=== PATIENT | female | born 1950 | race Caucasian/White ===

== ENCOUNTER 2016-07-02 14:21 | Inpatient (IN) | payer OTHER ==
[~2016-07-02] VITALS: Ht 175.3 cm; Wt 68.0 kg
[2016-07-02 16:04] VITALS: BP 104/72
[2016-07-02 16:05] VITALS: BP 104/72
--- NOTE | 2016-07-02 16:25 | HP ---
ADMIT DATE: 07/02/2016 CHIEF COMPLAINT: Abdominal pain, weight loss, abnormal CT scan. HISTORY OF PRESENT ILLNESS: A 65-year-old white female, seen on 06/24 in the office with some ongoing abdominal pain of uncertain duration. About a month or so prior to admission, she developed some diffuse abdominal pain on the right side, often worse after eating, associated with gas and constipation. There has been no overt melena, hematochezia or vomiting and she has had some unknown amount of weight loss. CT scan was ordered and showed innumerable lesions in the liver and also diffuse adenopathy in the intra-abdominal area and left-sided hydronephrosis with a distal ureteral stone. She is admitted for further evaluation of the probable oncology origin of this process. PAST MEDICAL HISTORY: History of coronary artery disease and in 2005, she had 2 stents placed none since then. MEDICATIONS: She takes carvedilol, Crestor and aspirin for this along with Effexor and Wellbutrin. ALLERGIES: Listed to DEMEROL AND TETRACYCLINE. PAST SURGICAL HISTORY: Surgically, she has had a total abdominal hysterectomy for benign disease, tonsillectomy, appendectomy and benign breast biopsies as well. SOCIAL HISTORY: She is ongoing smoker, about a half pack a day, started at age 15-18. She is single, employed, light drinker. FAMILY HISTORY: Father living of heart disease. Mother living with diabetes. No history of cancer in the family. REVIEW OF SYSTEMS: She has had some nonspecific weight loss and general malaise, but no other specific complaints. She has never had a colonoscopy or a CT scan of her chest for any kind of cancer surveillance aside from mammograms. OBJECTIVE: ENT: All within normal limits. NECK: No nodes, masses, or thyroid enlargement. LUNGS: Decreased breath sounds in both lung bases. CARDIOVASCULAR: Regular rate, mild tachycardia. No murmur. ABDOMEN: Diffusely tender, liver feels enlarged, no discrete nodules are felt. She is tender in the lower quadrants as well. No ascites is noted. EXTREMITIES: Reasonably good pedal and radial pulses, 1+ clubbing. No joint or skin lesions, or edema. NEUROLOGIC: Physiologic. GENITOURINARY AND RECTAL: Declined. LABORATORY DATA: CT scan showed innumerable nodular lesions in the liver as well as diffuse intraabdominal lymphadenopathy with left-sided hydronephrosis and a distal ureteral stone. No discrete primary mass was seen. There is a right-sided pleural effusion noted as well. ASSESSMENT: 1. Diffuse abdominal pain with almost certainly primary carcinoma diagnosis with abnormal lesions in the liver and intra-abdominal nodes. Primary could be lung, colon, or even lymphoma. 2. History of coronary artery disease, stable. 3. Smoker. 4. Pleural effusion, likely sympathetic to liver disease. PLAN: CT scan of the abdomen, pelvis, and chest with oral contrast. Her creatinine was 1.5. She will need biopsy for tissue diagnosis of the liver or intraabdominal nodes unless there is a mass in the lung, warranting evaluation of that. ABIOLA COONEY MD DR: DILAN/cary JOB#: [id number] / [id number]
[2016-07-02] MEDS ORDERED: CRESTOR20 MG PO (18:06)
[2016-07-02] MEDS ORDERED: CARV6.252 PO (18:06)
[2016-07-02] MEDS ORDERED: BUPR150T11 PO (18:06)
[2016-07-02] MEDS ORDERED: LEVO50TA5 PO (18:06)
[2016-07-02] MEDS ORDERED: TEMA15CA PO (18:06)
[2016-07-02] MEDS ORDERED: ASPI-482 PO (18:06)
[2016-07-02] MEDS ORDERED: VENL150C6 PO (18:06)
[2016-07-02] MEDS ORDERED: HYDROCODONE/APAP 5/325MG TABLET. PO PRN (18:45)
[2016-07-02 19:00] VITALS: BP 118/67
[2016-07-02] MEDS ORDERED: TEMAZEPAM 15 MG CAPSULE PO PRN (19:45)
[2016-07-02 19:54] LABS: BASO # 0.1 x10^3/uL (0.0-0.2); BASO % 1 % (0-3); EOS % 3 % (0-3); HEMATOCRIT 39.3 % (36.0-47.0); LYMPH # 2.3 x10^3/uL (1.0-4.8); LYMPH % 26 % (24-48); MEAN CORPUSCULAR HEMOGLOBIN 29 pg (25-35); MEAN CORPUSCULAR HGB CONC 33 g/dL (31-37); MEAN CORPUSCULAR VOLUME 89 fL (79-100); MONO % 7 % (0-9); NEUT % 63 % (31-73); PLATELET COUNT 344 x10^3/uL (140-400); RED BLOOD COUNT 4.42 x10^6/uL (3.50-5.40); RED CELL DISTRIBUTION WIDTH 12.8 % (11.5-14.5)
[2016-07-02 20:03] LABS: INR 1.1 (0.8-1.1); PROTHROMBIN TIME PATIENT 13.5 SEC (11.7-14.0)
[2016-07-02 20:21] LABS: ALBUMIN 3.2 g/dL (3.4-5.0); ALBUMIN/GLOBULIN RATIO 0.8 (1.0-1.7); CALCIUM 9.4 mg/dL (8.5-10.1); CREATININE 1.4 mg/dL (0.6-1.0); TOTAL BILIRUBIN 0.3 mg/dL (0.2-1.0); TOTAL PROTEIN 7.4 g/dL (6.4-8.2)
[2016-07-02] MEDS: IV DEXTROSE 5% - 0.9 % NACL 1,000 ML IV SCH (20:53)
[2016-07-02] MEDS: CARVEDILOL 6.25 MG TABLET PO SCH (20:53)
[2016-07-02] MEDS: VENLAFAXINE 50 MG TABLET. PO SCH (20:54)
[2016-07-02] MEDS ORDERED: ASPIRIN ENTERIC COATED 81 MG TABLET.DR. PO SCH (21:00)
[2016-07-02] MEDS ORDERED: ATORVASTATIN CALCIUM 40 MG TABLET. PO SCH (21:00)
[2016-07-02 23:00] VITALS: BP 102/55
[2016-07-03] MEDS: IV DEXTROSE 5% - 0.9 % NACL 1,000 ML IV SCH ×2 (02:45→05:08)
[2016-07-03 03:00] VITALS: BP 95/41
[2016-07-03] MEDS ORDERED: CONTRAST GIVEN MC PRN (06:45)
[2016-07-03] MEDS ORDERED: IOHEXOL 240 MG/ML 50ML VIAL. IV ONE (06:45)
[2016-07-03 07:00] VITALS: BP 105/59
[2016-07-03] MEDS ORDERED: LEVOTHYROXINE 50 MCG TABLET PO SCH (07:30)
[2016-07-03] MEDS: VENLAFAXINE 50 MG TABLET. PO SCH (07:57)
[2016-07-03] MEDS: CARVEDILOL 6.25 MG TABLET PO SCH (07:58)
[2016-07-03] MEDS ORDERED: buPROPion SR 150 MG TABLET.SA PO SCH (09:00)
--- NOTE | 2016-07-03 09:09 | PDOC ---
Provider Note Provider Note labs/inr ok, ct in process- feel lung/colon/lymphoma most likely primaries- may be able to bx later today based on scans ABIOLA COONEY MD Jul 03, 2016 09:09
[2016-07-03] MEDS ORDERED: TEMAZEPAM 15 MG CAPSULE PO PRN (09:15)
--- NOTE | 2016-07-03 09:49 | PDOC2 ---
GI CONSULT Reason For Consult: Liver masses, constipation, needs colonoscopy HPI: HPI: 65 y/o female, a pt of Dr. Bailey's, case previously d/w Dr. Stern re: need for colonoscopy. H/o 20 pound unintentional weight loss, limited diet (mostly liquids) due to early satiety, right-sided abd pain, some abd cramping ("like menstrual cramps"), bloating, nausea, and constipation. Symptoms present for a few months. Feels better after taking laxatives and having stools about every other day. Also has some heartburn which is not really improved w/ Jessica Han. No previous EGD or colonoscopy. Had a CT at another facility which showed liver lesions and abdominal adenopathy, now admitted for further evaluation. CT chest/A/P is pending this morning and liver biopsy is possible later today. PMH: PMH: CAD s/p two stents, HLD, hypothyroidism, anxiety/depression, total hysterectomy , tonsillectomy, appendectomy, benign breast biopsies FH: Family History: Cancer (?perhaps an aunt had cancer (unknown kind)), CAD, DM Social History: Smoke: <1 pack per day ALCOHOL: occassional Drugs: None ROS: GEN: Denies fevers, chills, sweats HEENT: Denies blurred vision, sore throat CV: Denies chest pain RESP: Denies shortness of air, cough GI: Per HPI : Denies hematuria, dysuria ENDO: +weight loss NEURO: Denies confusion, dizziness MSK: Denies weakness, joint pain/swelling SKIN: Denies jaundice, pruritus VItals: Vitals: Vital Signs Date Time Temp Pulse Resp B/P Pulse Ox O2 Delivery O2 Flow Rate FiO2 07/03/16 07:58 70 105/59 07/03/16 07:00 98.5 18 93 Room Air 98.5 Labs: Labs: Laboratory Tests Test 07/02/16 19:40 White Blood Count 9.0x10^3/uL (4.0-11.0) Red Blood Count 4.42x10^6/uL (3.50-5.40) Hemoglobin 13.0g/dL (12.0-15.5) Hematocrit 39.3% (36.0-47.0) Mean Corpuscular Volume 89fL (79-100) Mean Corpuscular Hemoglobin 29pg (25-35) Mean Corpuscular Hemoglobin Concent 33g/dL (31-37) Red Cell Distribution Width 12.8% (11.5-14.5) Platelet Count 344x10^3/uL (140-400) Neutrophils (%) (Auto) 63% (31-73) Lymphocytes (%) (Auto) 26% (24-48) Monocytes (%) (Auto) 7% (0-9) Eosinophils (%) (Auto) 3% (0-3) Basophils (%) (Auto) 1% (0-3) Neutrophils # (Auto) 5.7x10^3uL (1.8-7.7) Lymphocytes # (Auto) 2.3x10^3/uL (1.0-4.8) Monocytes # (Auto) 0.6x10^3/uL (0.0-1.1) Eosinophils # (Auto) 0.3x10^3/uL (0.0-0.7) Basophils # (Auto) 0.1x10^3/uL (0.0-0.2) Prothrombin Time 13.5SEC (11.7-14.0) Prothromb Time International Ratio 1.1 (0.8-1.1) Sodium Level 137mmol/L (136-145) Potassium Level 4.0mmol/L (3.5-5.1) Chloride Level 99mmol/L (98-107) Carbon Dioxide Level 30mmol/L (21-32) Anion Gap 8 (6-14) Blood Urea Nitrogen 11mg/dL (7-20) Creatinine 1.4mg/dL (0.6-1.0) Estimated GFR (Cockcroft-Gault) 38.0 BUN/Creatinine Ratio 8 (6-20) Glucose Level 95mg/dL (70-99) Calcium Level 9.4mg/dL (8.5-10.1) Total Bilirubin 0.3mg/dL (0.2-1.0) Aspartate Amino Transf (AST/SGOT) 26U/L (15-37) Alanine Aminotransferase (ALT/SGPT) 22U/L (14-59) Alkaline Phosphatase 109U/L (46-116) Total Protein 7.4g/dL (6.4-8.2) Albumin 3.2g/dL (3.4-5.0) Albumin/Globulin Ratio 0.8 (1.0-1.7) Allergies: Coded Allergies: tetracycline (Verified Allergy, Severe, Rash, 07/02/16) meperidine (Verified Allergy, Intermediate, Nausea and Vomiting, 07/02/16) Medications: Current Medications Medications (Trade) Dose Ordered Sig/Gurvinder Route PRN Reason Start Time Stop Time Status Last Admin Dose Admin Dextrose/Sodium Chloride (Iv D5% - NS) 1,000 ml @ 125 mls/hr Q8H IV 07/02/16 18:45 07/03/16 05:08 Aspirin (Ecotrin) 81 mg HS PO 07/02/16 21:00 07/03/16 07:47 DC 07/02/16 20:53 Bupropion HCl (Wellbutrin Sr) 150 mg DAILY PO 07/03/16 09:00 07/03/16 07:58 Carvedilol (Coreg) 6.25 mg BIDWMEALS PO 07/02/16 20:00 07/03/16 07:58 Levothyroxine Sodium (Synthroid) 50 mcg DAILYAC PO 07/03/16 07:30 07/03/16 07:58 Temazepam (Restoril) 15 mg PRN QHS PRN PO INSOMNIA 07/02/16 19:45 07/03/16 09:08 DC 07/02/16 20:53 Atorvastatin Calcium (Lipitor) 80 mg QHS PO 07/02/16 21:00 07/03/16 09:08 DC 07/02/16 20:53 Venlafaxine HCl (Effexor) 50 mg TID PO 07/02/16 21:00 07/03/16 09:08 DC 07/02/16 20:54 Iohexol (Omnipaque 240 Mg/ml) 50 ml 1X ONCE IV 07/03/16 06:45 07/03/16 06:46 DC 07/03/16 09:14 Imaging: Imaging: CT chest/abd/pelvis 07/03/16 PENDING PE: GEN: NAD, pleasant/cooperative HEENT: Atraumatic, PERRL LUNGS: CTAB anteriorly HEART: RRR ABD: BS+, some distention, RUQ tenderness EXTREMITY: No edema SKIN: No rashes, no jaundice NEURO/PSYCH: A & O 3 A/P: A/P: Liver lesions, abd adenopathy -on CT at another facility, CT chest/A/P pending here Weight loss, early satiety, nausea, right-sided abd pain/cramping, bloating, constipation Heartburn -frequent, not improved w/ Azra-Guille, no previous EGD CRC screen -no previous colonoscopy -- D/w Dr. Stern - f/u planned next week. Await imaging, possible biopsy. Will discuss timing of EGD/colonoscopy (?outpt next week) w/ Dr. Patel. Will add Miralax, PPI. STERLING ALCARAZ Jul 03, 2016 09:49
--- NOTE | 2016-07-03 09:50 | RAD ---
Indication: Liver nodules. Axial imaging through the chest, abdomen and pelvis was performed without intravenous contrast. No prior studies are available for comparison. CT chest: No axillary lymphadenopathy is detected. Hilar and mediastinal evaluation is limited without intravenous contrast. There are coronary arterial calcifications present. No pericardial effusion is identified. There are some enlarged lymph nodes in the anterior mediastinum just above the diaphragm. Largest lymph node measures 1.7 cm in diameter. There is a moderate right pleural effusion layering dependently to a thickness of approximately 6 cm. No left-sided effusion is identified. Parenchymal evaluation does show some compressive atelectasis in the right lower lobe. No parenchymal mass is detected. The left lung is clear. Impression: 1. Moderate right pleural effusion and right basilar compressive atelectasis. There are enlarged lymph nodes in the anterior mediastinum, indeterminate. No other significant abnormality is seen. CT abdomen and pelvis: There is a large ill-defined low-density mass involving the right lobe of the liver measuring approximately 6 cm transverse diameter. Abnormal nodular soft tissue thickening is identified in the perihepatic region, suggestive of serosal implants on the surface of the liver. No biliary ductal dilatation is seen. The gallbladder is not well-visualized and may be surgically absent. The pancreas and spleen are unremarkable. No adrenal mass is detected. There is left hydroureteronephrosis. The dilated left ureter is traced into the pelvis but exact etiology of the hydronephrosis is not determined. No definite calculi are identified. The aorta is nonaneurysmal. The small and large bowel loops are normal caliber. Abnormal soft tissue masses at the central abdomen mesentery is noted, largest 2.3 cm in diameter, image 57. Second density image 62 is identified measuring 2.2 cm. No definite iliac or inguinal lymphadenopathy is identified. There is sigmoid diverticular disease. There is some free fluid in the pelvis but no well-formed fluid collection is identified. The bladder is decompressed. Impression: 1. Findings suggestive of a large liver mass. There are also numerous perihepatic nodular densities suggestive of serosal implants, perhaps on the basis of peritoneal carcinomatosis. Additional enlarged mesenteric sheryl masses are also present. There is moderate free fluid in the pelvis. Sigmoid diverticulosis is noted. PQRS Compliance Statement: One or more of the following individualized dose reduction techniques were utilized for this examination: 1. Automated exposure control 2. Adjustment of the mA and/or kV according to patient size 3. Use of iterative reconstruction technique
[2016-07-03] MEDS ORDERED: VENLAFAXINE XR 37.5 MG CAP.ER.24H. PO SCH (10:00)
--- NOTE | 2016-07-03 10:00 | PDOC ---
Provider Note Provider Note Onc consult dictated- [id number] Liver lesions, abdominal adenopathy concerning for stage IV cancer, etiology unclear Tob abuse Constipation RUQ abd pain Plan: - CT C/A/P - CEA - Liver bx - GI consult, needs colonoscopy as in or outpt in very near future to r/u near obstruction which could require surgery - Pt states she is not interested in systemic chemo but will f/u with me in clinic next week on pending results. D/W Dr. Bailey and SHARAN. LISHA TATUM DO Jul 03, 2016 10:00
[2016-07-03] MEDS ORDERED: POLYETHYLENE GLYCOL 3350 17 GM PACKET. PO SCH (10:30)
[2016-07-03] MEDS ORDERED: PANTOPRAZOLE 40 MG TABLET. PO SCH (10:30)
[2016-07-03 11:00] VITALS: BP 117/60
--- NOTE | 2016-07-03 20:21 | DS ---
DATE OF DISCHARGE: 07/03/2016 HOSPITAL SUMMARY: A 65-year-old white female with diffuse abdominal pain and weight loss, was found by outpatient CT to have large masses in her liver as well as enumerable enlarged lymph nodes in the intraabdominal area and a right pleural effusion. She was admitted for pain control, diagnostic evaluation and biopsy to try make a diagnosis of cancer of unknown primary. She had a CBC, chemistry profile, all of which was normal as was her INR. CEA is pending. CT scan of the chest showed some intrapulmonary lymph nodes and right pleural effusion with no masses. The CT scan of the abdomen showed a large 6 cm abdominal mass in the liver as well as multiple nodes on the outside of the liver and within the abdomen as well with no other dominant mass. Liver biopsy was planned and was going to be done, but was delayed by Emergency and Interventional Radiology and the patient was uncomfortable waiting, wanted to go home, and have it followed as an outpatient despite our recommendations against that. FINAL DIAGNOSES: 1. Liver mass, suspect neoplasm of unknown primary. 2. Intraabdominal lymphadenopathy, suspect carcinoma of unknown primary. 3. Right pleural effusion, likely secondary to liver mass. OPERATIONS, PROCEDURES, COMPLICATIONS: None. CONSULTATIONS: Dr. Kylah Stern. DISPOSITION: She will see Interventional Radiology next week for liver biopsy as scheduled prior to her departure. Home meds remain the same, but she will remain off aspirin because of the bleeding risk greater than benefit. Prognosis is extremely guarded given the unknown nature of her carcinoma diagnosis. ABIOLA COONEY MD DR: DILAN/cary JOB#: [id number] / [id number]
--- NOTE | 2016-07-04 00:50 | CONS ---
DATE OF CONSULTATION: REFERRING PROVIDER: Dr. Garrett Bailey. REASON FOR CONSULTATION: Liver lesions. HISTORY OF PRESENT ILLNESS: The patient is a 65-year-old female who presented to Dr. Bailey for outpatient followup when she was having a 1 month history of right upper quadrant abdominal pain and a 20-pound weight loss. She has had early satiety, poor appetite, difficulty passing stools with constipation, and bloating. She has never had a colonoscopy. She has not noted any melena or hematochezia. She had an outpatient CT of the abdomen and pelvis completed at a facility in [place] which reportedly showed diffuse liver lesions and abdominal adenopathy. She was admitted for evaluation and pain control. PAST MEDICAL HISTORY: Tobacco abuse, heart disease. PAST SURGICAL HISTORY: PCI in 2005, TAHBSO, tonsillectomy, appendectomy, breast biopsies, which were benign. FAMILY HISTORY: Dad had a history of heart disease. Mom diabetes. Sister with Parkinson's and diabetes, another sister who is alive and healthy. SOCIAL HISTORY: She has smoked at least one half pack a day for the last 45 years. She is single, very active. No alcohol or drug use. ALLERGIES: MEPERIDINE, TETRACYCLINE. CURRENT MEDICATIONS: Lortab, Wellbutrin, Coreg, Synthroid, Protonix, MiraLax, Restoril, Effexor. REVIEW OF SYSTEMS: Twelve point review of systems completed and unremarkable with the exception of that mentioned in HPI. PHYSICAL EXAMINATION: VITAL SIGNS: Temperature 98.5, pulse 70, respiratory rate 18, blood pressure ____/59, 93% O2 on room air. GENERAL: She is alert and oriented and in no apparent distress. She appears to be overall in excellent health and very active. HEENT: Extraocular muscle strength is intact. Mucous membranes are moist. CARDIOVASCULAR: Heart is regular in rhythm and rate. LUNGS: Clear to auscultation bilaterally. ABDOMEN: Soft with some mild tenderness in the right upper quadrant, no obvious, organomegaly or masses. EXTREMITIES: No edema. NEUROLOGIC: No focal deficits. IMAGING/LABORATORY DATA: CT of the chest, abdomen and pelvis will be obtained this morning. CBC is unremarkable. CMP is also unremarkable with normal liver enzymes. CEA is pending. ASSESSMENT AND PLAN: The patient is a 65-year-old female with the following medical problems: 1. Diffuse liver lesions and abdominal adenopathy concerning for an advanced stage IV malignancy. 2. Right upper quadrant abdominal pain, likely related to the liver metastases. 3. Constipation. She has never had a colonoscopy. 4. Tobacco abuse, not interested in quitting. She states that if she is found to have a cancer, she does not think she wants to undergo systemic treatment. However, she is interested in knowing an official diagnosis. RECOMMENDATIONS: 1. I will follow up on the CT chest, abdomen and pelvis ordered today. 2. I will see her back in the clinic in 1 week to follow up on her pending pathology results from the liver biopsy planned today. 3. Follow up pending CEA. 4. I also consulted GI for a colonoscopy. Given her change in bowel habits, it is certainly concerning for a colon primary. We discussed that if she is found to have any impending obstruction, it would be important to have a surgical evaluation and possible treatment to avoid any surgical emergencies such as a complete obstruction. She voiced understanding. Thank you for this consultation. I discussed this information with Dr. Bailey and also Naomi Conn from GI. From an oncology standpoint, she can be discharged at any time and I will follow up next week on all these pending results. LISHA TATUM DO DR: ALBINA/cary JOB#: [id number] / [id number] LUIS
== END 2016-07-03 14:50 | disposition home or self-care (01) | DRG 436 ==
LOC: 6 SOUTH 15:18
PROVIDERS: ADMIT Family Medicine; ATTEND Family Medicine
DX: C78.7 Secondary malignant neoplasm of liver and intrahepatic bile duct (principal); J90 Pleural effusion, not elsewhere classified; E03.9 Hypothyroidism, unspecified; E78.5 Hyperlipidemia, unspecified; F17.200 Nicotine dependence, unspecified, uncomplicated; F32.9 Major depressive disorder, single episode, unspecified; F41.9 Anxiety disorder, unspecified; I25.10 Atherosclerotic heart disease of native coronary artery without angina pectoris; K59.00 Constipation, unspecified; Z82.0 Family history of epilepsy and other diseases of the nervous system; Z83.3 Family history of diabetes mellitus; Z88.8 Allergy status to other drugs, medicaments and biological substances; Z90.710 Acquired absence of both cervix and uterus; Z95.5 Presence of coronary angioplasty implant and graft; C80.1 Malignant (primary) neoplasm, unspecified
CPT/HCPCS: 71250; 74176; 80053; 85027; 85610; J7042; Q9966

== ENCOUNTER 2016-07-07 10:18 | Outpatient (CLI) | payer OTHER ==
[~2016-07-07] VITALS: Ht 175.3 cm; Wt 68.0 kg
[2016-07-07] VITALS (12 sets, daily range): BP systolic 96–121; BP diastolic 69–86
[~2016-07-07 10:18] MED LIST: ASPI-482 PO; BUPR150T11 PO; CARV6.252 PO; CRESTOR20 MG PO; LEVO50TA5 PO; TEMA15CA PO; VENL150C6 PO
[2016-07-07] MEDS ORDERED: ONDANSETRON PF 4 MG/2 ML VIAL. IV ONE (11:00)
[2016-07-07] MEDS ORDERED: FENTANYL PF 250 MCG/5 ML VIAL. ONE (11:04)
[2016-07-07] MEDS ORDERED: MIDAZOLAM HCL/PF 5 MG/5 ML VIAL ONE (11:04)
[2016-07-07] MEDS ORDERED: LIDOCAINE 1% / SOD BICARB 8.4% 20 ML VIAL. IJ ONE ×2 (11:09→11:30)
[2016-07-07] MEDS ORDERED: MIDAZOLAM HCL/PF 5 MG/5 ML VIAL IV ONE (11:30)
[2016-07-07] MEDS ORDERED: FENTANYL PF 250 MCG/5 ML VIAL. IV ONE (11:30)
--- NOTE | 2016-07-07 11:44 | PDOC ---
MODERATE SEDATION ASSESSMENT RISKS/ALTERNATIVES Risks/Alternatives Risks and alternatives of this type of sedation and procedure discussed with: RISK/ALTERNATIVES: Patient H & P ON CHART H & P H & P on chart and reviewed for co-morbid conditions and appropriate labs. H&P ON CHART: Yes STATUS PREG STATUS ASSESSED: N/A MEDS/ALLERGIES REVIEWED Meds/Allergies Reviewed Medications and Allergies including time and route of recently administered narcotics and sedatives. MEDS/ALLERGIES REVIEWED: Yes ASA RATING ASA RATING: III AIRWAY ASSESSMENT Airway Assessment Airway patency, oral function limitations, presence of caps, crowns, dentures, partials, and ability to extend neck assessed. AIRWAY ASSESSMENT: Yes MALLAMPATI SCORE MALLAMPATI SCORE: II PRE-SEDATION ASSESSMENT PRE-SEDATION ASSESSMENT: Yes RADHA DIAL MD Jul 07, 2016 11:44
--- NOTE | 2016-07-07 11:46 | PDOC1 ---
History and Physical Date of Procedure Date of Admission 07/07/[address] guided bx large anterior liver mass Past Medical History Past Medical History See Nursing Pre procedure PMH Past Surgical History Past Surgical History See Nursing Pre procedure PSH Current Medications Current Medications Current Medications Ondansetron HCl (Zofran) 4 mg 1X ONCE IV Last administered on 07/07/16 10:59 ; Start 07/07/16 at 11:00; Stop 07/07/16 at 11:01; Status DC Midazolam HCl (Versed) 5 mg STK-MED ONCE .ROUTE ; Start 07/07/16 at 11:04; Stop 07/07/16 at 11:05; Status DC Fentanyl Citrate (Fentanyl 5ml Vial) 250 mcg STK-MED ONCE .ROUTE ; Start at 11:04; Stop 07/07/16 at 11:05; Status DC Lidocaine/Sodium Bicarbonate (Buffered Lidocaine 1%) 20 ml STK-MED ONCE IJ ; Start 07/07/16 at 11:09; Stop 07/07/16 at 11:10; Status DC Lidocaine/Sodium Bicarbonate (Buffered Lidocaine 1%) 20 ml 1X ONCE IJ Last administered on 07/07/16 11:34; Start 07/07/16 at 11:30; Stop 07/07/16 at 11:31 ; Status DC Midazolam HCl (Versed) 2.5 mg 1X ONCE IV Last administered on 07/07/16 11:35 ; Start 07/07/16 at 11:30; Stop 07/07/16 at 11:31; Status DC Fentanyl Citrate (Fentanyl 5ml Vial) 250 mcg 1X ONCE IV Last administered on 11:35; Start 07/07/16 at 11:30; Stop 07/07/16 at 11:31; Status DC Active Scripts Active Reported Temazepam 15 Mg Capsule 15 Mg PO HS PRN Levothyroxine Sodium 50 Mcg Tablet 50 Mcg PO DAILYAC Crestor (Rosuvastatin Calcium) 20 Mg Tablet 20 Mg PO HS Bupropion Hcl Sr (Bupropion Hcl) 150 Mg Tablet.er 150 Mg PO DAILY Carvedilol 6.25 Mg Tablet 6.25 Mg PO BID Venlafaxine Hcl Er (Venlafaxine Hcl) 150 Mg Cap.er.24h 150 Mg PO DAILY Allergies Allergies: Coded Allergies: tetracycline (Verified Allergy, Severe, Rash, 07/02/16) meperidine (Verified Allergy, Intermediate, Nausea and Vomiting, 07/02/16) Physical Exam Vital Signs Vital Signs Date Time Temp Pulse Resp B/P Pulse Ox O2 Delivery O2 Flow Rate FiO2 07/07/16 11:35 12 94 Nasal Cannula 3.0 07/07/16 11:30 89 07/07/16 11:09 97.8 121/86 97.8 Lungs: Clear to auscultation Heart: Normal S2 Psych/Mental Status: Other (Agitated) Diagnostic Data/Imaging Images PMC CT from 07/03/16 revealed large anterior liver mass, with probable peritoneal /mesenteric implants Assessment Assessment Large anterior liver mass, with probable peritoneal/mesenteric implants Problems: Plan Plan CT guided liver mass bx. RADHA DIAL MD Jul 07, 2016 11:46
--- NOTE | 2016-07-07 11:56 | PDOC ---
Exam Eyelet Operator Eyelet Operator Liz Circular Head Saw Operator Circular Head Saw Operator B Cates Pre-Procedure Diagnosis Pre-Procedure Diagnosis Large anterior liver mass, with probable peritoneal/mesenteric implants Post-Procedure Diagnosis Post-Procedure Diagnosis Same Liver mass is markedly desmoplastic, raising ? of cholangiocarcinoma or met pancreatic carcinoma Procedure Performed Procedure Performed CT guided bx large anterior liver mass Type of Anesthesia Type of Anesthesia Local + Mod sedation Estimated Blood Loss EBL: Minimal Specimens Specimans 5 18G core bx to path in formalin Condition of Patient Condition of Patient Stable. Sedated. Disposition Disposition Home from OBS post recovery, if no problems. F/u with Dr Bailey. Full report to follow. RADHA DIAL MD Jul 07, 2016 11:56
--- NOTE | 2016-07-08 06:19 | RAD ---
CT-guided liver mass biopsy Indication: 65-year-old female with a large, poorly defined, hypodense mass within anterior aspect of liver. Image guided biopsy has been requested for tissue diagnosis. Anesthesia: 27 minutes moderate sedation was provided utilizing a total of 3 mg Versed and 150 mcg fentanyl, IV. The patient was appropriately monitored by a qualified independent observer throughout the time of moderate sedation. Consent: The procedure was explained in its entirety to the patient and/or the patient's designated sales representative groceries by a member of the treatment team. This included a discussion of risks and benefits and acceptable alternatives to the procedure, as well as expected consequences of no treatment at all. Discussion of risks included, but was not limited to, those that are most frequent and those that are rare, but possibly severe or life-threatening, as well as the possibility of unforeseen complications. Procedure: Informed consent was obtained from the patient. She was placed supine on the CT scanner. Preliminary noncontrast CT images were obtained through liver. Those images confirmed the previously described poorly defined anterior hepatic mass. A right epigastric skin site suitable for CT-guided biopsy was selected and marked. That area was prepped and draped in the usual sterile fashion. Moderate sedation was provided with IV Versed and fentanyl. Using aseptic technique, local anesthesia, and CT guidance, a 17-gauge guide needle was successfully introduced into the low density liver mass. A total of 5 18-gauge core biopsy samples were obtained, and were submitted in formalin to pathology. Hemostasis was achieved with autologous clot introduced through the biopsy guide needle, which was then removed. A sterile dressing was applied. Patient tolerated the procedure well without apparent location. Impression: Successful, uneventful CT-guided biopsy of large anterior liver mass, as described. PQRS Compliance Statement: One or more of the following individualized dose reduction techniques was utilized for this procedure: 1. Automated exposure control. 2. Adjustment of MA and/or KV according to patient size. 3. Iterative reconstruction technique.
--- NOTE | 2016-07-09 13:08 | PATHOLOGY ---
PATHOLOGY REPORT * * * * * * * * FINAL DIAGNOSIS: Liver tissue, left lobe liver mass CT guided biopsy: - ADENOCARCINOMA, MODERATELY-WELL DIFFERENTIATED, WITH MARKED SCLEROSIS. SEE COMMENT. COMMENT: Sections of the left lobe liver mass CT guided biopsy show extensive replacement of liver tissue by a malignant epithelial neoplasm. The neoplasm is composed of malignant glands irregularly infiltrating a reactive desmoplastic stroma. The malignant cells show moderate nuclear pleomorphism. There are mitotic figures present. The neoplasm is associated with a prominent desmoplastic sclerotic stroma. In fact, some of the biopsy segments are composed almost exclusively of dense sclerotic stroma with only a few infiltrating malignant glands. A panel of immunohistochemical stains is obtained and yields the following results: Cytokeratin 7: tumor cells positive Cytokeratin 20: tumor cells negative Cytokeratin 19: tumor cells positive CDX2: tumor cells negative TTF-1: tumor cells negative The morphologic and immunophenotypic findings are supportive of the diagnosis of a moderately-well differentiated adenocarcinoma with marked sclerosis, and are consistent with cholangiocarcinoma. The case is also examined by Dr. May, who concurs with the diagnosis. (JPM:all; d/t: 07/08-07/2016) Special stains performed: immunoperoxidase stains for CDX2, CK7, CK20, CK19, TTF0-1 REPORT ELECTRONICALLY SIGNED BY: Eugenio Corral M.D. DATE/TIME: 07/09/2016 13:07 * * * * * * * * GROSS PATHOLOGY: Received in formalin labeled "Luz Elena Ybarra and liver mass bx," are 5 distinct needle cores of white-tyson soft tissue ranging from 0.4 to 1.2 cm in length, which are submitted entirely in cassette A1. (TTL; 07/07/2016) INITIAL CPT CODE(S): 72619, 62895, 61626(4) Professional services performed by [facility] at [address] [address] Technical services performed by [facility] at [address] [place] [address], [address], [place] [address]. SPECIMEN(S) RECEIVED: A.Liver, needle biopsy CLINICAL HISTORY: Large left lobe liver mass, desmoplastic neoplasm, ? cholangio carcinoma PATIENT: LUZ ELENA YBARRA /AGE: 611/29/1950 (Age: 65) PATIENT #: [id number] ALT CASE #: SPECIMEN COLLECTION DATE: 07/07/2016 SPECIMEN RECEIVED DATE: 07/07/2016 [facility] - [id number] [place] [address] - PHONE: [phone] * * * END OF REPORT * * *
== END 2016-07-07 13:30 | disposition home or self-care (01) ==
LOC: INTRAD 10:18
PROVIDERS: ATTEND Family Medicine
DX: R16.0 Hepatomegaly, not elsewhere classified (principal); E03.9 Hypothyroidism, unspecified; F32.9 Major depressive disorder, single episode, unspecified; F41.9 Anxiety disorder, unspecified; Z72.89 Other problems related to lifestyle; Z90.710 Acquired absence of both cervix and uterus
CPT/HCPCS: 47000; 77012; J2250; J2405; J3010